=== PATIENT | female | born 1965 | race Caucasian/White ===

== ENCOUNTER → 2016-06-07 | Day surgery (SDC) | payer BC ==
[~2016-06-07] VITALS: Ht 161.3 cm; Wt 67.6 kg
[~2016-06-07] MED LIST: ACET325T45 PO; FENTAnyl 50 MCG/ML VIAL ONE; IBUP800T25 PO; PROPOFOL 20 ML ONE
[2016-06-07 16:18] VITALS: Ht 161.3 cm; Wt 67.6 kg
[2016-06-07 16:34] VITALS: BP 110/71; PULSE 75; RESP 12
[2016-06-07 17:41] VITALS: BP 94/52; PULSE 74; RESP 19
--- NOTE | 2016-06-07 18:52 | GILP ---
DATE OF PROCEDURE: 06/07/2016 PROCEDURE: Colonoscopy to cecum. BRIEF HISTORY AND INDICATIONS: The patient is being evaluated for colorectal cancer screening. PREMEDICATION: Monitored anesthesia care by anesthesiologist. SURGEON: Manpreet Rcih MD. INSTRUMENT USED: Olympus colonoscope. PREPARATION: Adequate. TECHNIQUE: After informed consent, with the patient/relatives understanding the procedure, its indic ations potential risks and complications, including but not limited to: allergic reaction, bleeding, perforation, infection, missed lesions and after all pertinent questions were answered to the patie nt's satisfaction, the patient/relatives signed the witnessed informed consent. Following this, premedication was administered slowly IV push by under careful cardiovascular and re spiratory monitoring with pulse oximetry, automatic blood pressure and advertising photographer. Once the sedativ e effect was achieved, the patient was placed in the left lateral decubitus position, digital rectal examination was performed. The colonoscope was then introduced and advanced under visual control th roughout all segments of the colon including: the rectum, sigmoid, descending colon, splenic flexure , transverse colon, hepatic flexure, ascending colon and finally reaching the cecum which was clearl y identified by transillumination, finger indentation and the ileocecal valve. Careful examination o f the mucosa of the lower gastrointestinal tract both on insertion as well as withdrawal of the inst rument disclosed the following findings: Rectal Examination: No evidence of perirectal disease, no masses. Colonic Mucosa: The colonic mucosa entirely unremarkable throughout. The ileocecal valve was clearl y identified and appears unremarkable. The instrument was withdrawn. Reexamining the mucosa in det ail. No additional abnormalities are noted with exception of moderate sized internal hemorrhoids. The instrument was then withdrawn, the patient tolerated the procedure well and was transferred out of the Endoscopy Suite awake and in good condition to continue recovery under observation. IMPRESSION: 1. Normal colonic mucosa to cecum. 2. Moderate size internal hemorrhoids. PLAN: The patient will be followed up as an outpatient. Further recommendation will depend on her clinical course. Screening colonoscopy in 10 years is recommended. Annual Hemoccult stool testing is also recommended. Dictated By: MANPREET RICH MS/MARCO A Conf#: [id number] DID#: [id number]
--- NOTE | 2016-06-07 18:53 | GILP ---
DATE OF PROCEDURE: PROCEDURE: Esophagogastroduodenoscopy with biopsies. BRIEF HISTORY AND INDICATIONS: The patient is being evaluated for abdominal pain. PREMEDICATION: Monitored anesthesia care by anesthesiologist. SURGEON: Manpreet Rich MD INSTRUMENT USED: Olympus panendoscope TECHNIQUE: After informed consent, with the patient/relatives understanding the procedure, its indic ations, potential risks and complications, including but not limited to: allergic reaction, bleeding , perforation or infection, and after all pertinent questions were answered to the patients satisfac tion, the patient/relatives signed witnessed informed consent. Following this, premedication was administered slowly IV push under careful cardiovascular and respi ratory monitoring with pulse oximetry, automatic blood pressure and monitoring tech. Once the sedative effect was achieved the patient was place in the left lateral decubitus, the panen doscope was introduced and advanced under visual control. Careful examination of the upper gastrointestinal tract, both on insertion as well as withdrawal of the instrument disclosed the following findings: ESOPHAGUS: The mucosa of the entire esophagus appears within normal limits. There is no evidence of esophagitis, varices, neoplasm or stricture. No hiatal hernia identified. STOMACH: Upon entrance to the stomach, air was insufflated, the gastric lee distended normally. The mucosa of the fundus, body and antrum of the stomach was carefully examined, shows erythema and edema of the mucosa of a moderate degree. Biopsies were obtained to rule out H. pylori infection. PYLORUS: The pylorus appears patent and within normal limits, with no evidence of gastric outlet ob struction. DUODENUM: The duodenal mucosa was carefully examined in the duodenal bulb as well as the second por tion of the duodenum and appears unremarkable with no evidence of duodenitis, ulcer or neoplasm. The instrument was then withdrawn, the patient tolerated the procedure well and was transfer out of the endoscopy suite awake, and in good condition to continue recovery under observation IMPRESSION: Gastritis, rule out Helicobacter pylori infection, biopsies obtained. PLAN: 1. The patient will be treated with PPIs, i.e. omeprazole 40 mg daily. 2. Pathology will be reviewed as soon it is available. Further recommendation will depend on patie nt's clinical course as well as review of biopsies. Dictated By: MANPREET RICH MS/MARCO A Conf#: [id number] DID#: [id number]
== END | disposition home or self-care (01) ==
LOC: GIL 14:17
PROVIDERS: ATTEND Internal Medicine Gastroenterology
DX: Z12.11 Encounter for screening for malignant neoplasm of colon (principal); K29.70 Gastritis, unspecified, without bleeding; K64.8 Other hemorrhoids; J45.909 Unspecified asthma, uncomplicated
CPT/HCPCS: 43239; 45378; 88305; 88312; J3010; Z7610